=== PATIENT | female | born 1955 | race Caucasian/White ===

== ENCOUNTER 2023-10-09 15:34 | Emergency (ER) | payer MEDICARE, OTHER, SELFPAY ==
[2023-10-09 15:35] VITALS: BP 138/98
[2023-10-09 15:55] LABS: % Basophils 0.6 % (0-2); % Eosinophils 1.9 % (0-6); % Immature Granulocytes 0.2 % (0-0.5); % Lymphocytes 22.2 % (20.5-51.1); % Monocytes 8.3 % (1.7-9.3); % Neutrophils 66.8 % (42.2-75.2); Absolute Eosinophils 0.1 10^3/uL (0-0.7); Absolute Lymphocytes 1.1 10^3/uL (1.2-3.4); Absolute Monocytes 0.4 10^3/uL (0.1-0.6); Absolute Neutrophils 3.2 10^3/uL (1.4-6.5); Hematocrit 35.6 % (37.0-47.0); Hemoglobin 12.5 g/dL (12.0-16.0); Mean Corp Hgb Conc. 35.1 g/dL (33.0-37.0); Mean Corpuscular Volume 85.6 fL (81.0-99.0); Mean Platelet Volume 10.3 fL (7.4-10.4); Nucleated Red Blood Cells % 0 %; Platelet Count 242 10^3/uL (130-400); Red Blood Cell Count 4.16 10^6/uL (4.20-5.40); Red Cell Dist. Width 12.5 % (11.5-14.5); White Blood Cell Count 4.7 10^3/uL (4.8-10.8)
[2023-10-09 15:56] LABS: Urine Albumin 1+ (Neg - Trace); Urine Bilirubin 3+ (Negative); Urine Character Clear (Clear); Urine Glucose Negative (Negative); Urine Ketone Negative (Negative); Urine Leukocyte Negative (Negative); Urine Nitrite Positive (Negative); Urine Occult Blood 4+ (Negative); Urine Urobilinogen 3+ (Neg - 1+)
[2023-10-09 15:57] LABS: Urine Color Orange
[2023-10-09 16:04] LABS: Urine Squamous Cell 0-2 /LPF (Few)
[2023-10-09 16:05] LABS: Urine Red Blood Cell >100 /HPF (0-2); Urine White Cell 0-2 /HPF (0-5)
[2023-10-09 16:13] LABS: ALT (SGPT) 20 U/L (0-35); AST (SGOT) 30 U/L (14-36); Albumin 4.5 g/dl (3.5-5.0); Alkaline Phosphatase 61 U/L (38-126); Blood Urea Nitrogen 25 mg/dl (7-17); Calcium 9.9 mg/dl (8.4-10.2); Carbon Dioxide 29 mmol/L (22-30); Chloride 97 mmol/L (98-107); Glucose 117 mg/dl (70-99); Potassium 3.1 mmol/L (3.5-5.1); Sodium 138 mmol/L (135-145); Total Bilirubin 2.1 mg/dl (0.2-1.3); Total Protein 7.1 g/dl (6.3-8.2); eGFR > 60.00
--- NOTE | 2023-10-09 17:13 | ED.GENMED ---
Addendum entered and electronically signed by Antonieta Thomas PA-C 10/11/23 08:14:
Urine culture preliminarily gram-negative rods. She was given a dose of Rocephin in the hospital. I spoke with her and she is feeling better, no systemic symptoms and believes she probably passed the stone. Will send in a prescription for
cefdinir twice daily for 10 days, encouraged patient to return for any worsening symptoms. We will need to follow-up on the finalized culture to be sure that this is adequate coverage.
Original Note:
History of Present Illness
General
Chief Complaint: Urinary Symptoms
Source: patient
Exam Limitations: none
Time Seen by Provider: 10/09/23 16:36
Nursing documentation reviewed up to this point in time: agreed with
Travel History
Have you had any contact with someone who has COVID-19?: No
Do you have any symptoms of coronavirus? Fever > 100 degrees, chills, cough, shortness of breath, sore throat, loss of taste or smell, muscle aches, or headache?: No
History of Present Illness
History of Present Illness:
pt is a 67 y/o F with h/o HTN, HLD h/o kidney stones
says she has had poor appetite for af ew weeks since having her R TKR 7 weeks ago and has had diarrhea and nauesa and lack of appetite; pt says she has had a w/u for this and has been inconclusive, no causes identified
shehasn't been drinking a lot of water
says that she has had kidney stones about 10 times in the past and has been told she gets them when she is dehydrated
she started having urethral irritation which is usually the symptom she gets with stones, she never gets flank pain with her stones
she tried an OTC dose of pyridium but was still uncomfortable so she is here to see if she is passing a stone
she has not had fever, chills, vomiting, diarrhea, hematuria
Past History
Past History
ED Past Medical History: GERD, HTN and Hypercholesterolemia
ED Past Surgical History: Appendectomy and Orthopedic
Patient has exhibited threatening behavior?: No
PSI?: No
Review of Systems
Review of Systems
Allergies reviewed?: Yes
All Other Systems: Not applicable
Phy Exam
Physical Exam
Physical Exam:
GENERAL: Alert, comfortable
Neck: supple
CARDIAC: Regular rate and rhythm .
LUNGS: Clear breath sounds bilaterally, no acute respiratory distress, no wheezes/rales/rhonchi
ABDOMEN: Soft, normal bowel sounds, nondistended, mild suprapubic tenderness, no guarding, no rebound, neg gallegos's
NEUROLOGICAL: Alert and oriented, no focal neuro deficits
SKIN: Warm and dry, skin intact.
PSYCH: Normal and appropriate interaction.
Course
Orders/Labs/Results
Orders:
Orders
10/09/23 15:44
Urinalysis Reflex To Culture Urgent
Date Specimen was Collected: 10/09/23
Time Specimen was Collected: 15:40
Urine Microscopic Reflex Cult Urgent
Urine Culture Urgent
JULIAN Source: U
Specimen Description:
Date Specimen was Collected: 10/09/23
Time Specimen was Collected: 15:40
10/09/23 15:46
CMP [Comprehensive Metabolic Panel] Urgent
Complete Blood Count/With Diff Urgent
Magnesium Urgent
Comment: ADD ON
10/09/23 17:10
Add On- LAB Urgent
Tests Added?: magnesium
CT Abd/pel Without Iv Or Oral Urgent
Comment:
Reason For Exam: suprapubic pain h/o kidney stones
0.9% Sodium Chloride 1000 ml [Nss] 1,000 ml IV BOLUS
Ketorolac [Toradol] 15 mg IV NOW STA
10/09/23 18:36
Potassium Chloride [KCl] 20 meq PO NOW STA
Tamsulosin [Flomax] 0.4 mg PO NOW STA
10/09/23 18:42
CefTRIAXone [Rocephin] 1,000 mg IV NOW STA
Abnormal Lab Results
10/09/23 10/09/23
15:44 15:46
WBC 4.7 L 10^3/uL
(4.8-10.8)
RBC 4.16 L 10^6/uL
(4.20-5.40)
Hct 35.6 L %
(37.0-47.0)
Absolute Lymphs (auto) 1.1 L 10^3/uL
(1.2-3.4)
Potassium 3.1 L mmol/L
(3.5-5.1)
Chloride 97 L mmol/L
(98-107)
BUN 25 H mg/dl
(7-17)
Glucose 117 H mg/dl
(70-99)
Total Bilirubin 2.1 H mg/dl
(0.2-1.3)
Ur Occult Blood Reflex 4+ A
(Negative)
Urine Nitrite (Reflex) Positive A
(Negative)
Urine Bilirubin 3+ A
(Negative)
Urine Urobilinogen 3+ A
(Neg - 1+)
Urine RBC >100 A /HPF
(0-2)
Urine Albumin (Reflex) 1+ A
(Neg - Trace)
10/09/23 15:46
10/09/23 15:46
Vital Signs
Initial and Last Documented VS:
Initial Vital Signs
Temp Pulse Resp BP Pulse Ox
97.6 F 97 18 138/98 99
10/09/23 15:35 10/09/23 15:35 10/09/23 15:35 10/09/23 15:35 10/09/23 15:35
Last Documented Vital Signs
Temp Pulse Resp BP Pulse Ox
97.6 F 75 18 104/81 99
10/09/23 15:35 10/09/23 18:51 04/12/24 18:51 10/09/23 18:51 10/09/23 18:51
MDM/Problems Addressed
Differential Diagnosis Includes:
kidney stone, uti
MDM/Problems Addressed:
67 y/o F with h/o kidney stones, (says she never got falnk pain, always pressure in her bladder and in her urethra)
and started with pain yesterday and urge to urinate
no fever/chills
took pyridium [employer]
pt well appearing
afebrile
nontoxic
mild suprapubic tendenress
no flank tendenress
ua nitritie positive but also with bili and could be false positive due to pyridium
no LE, no wbc
>[address] shows 2 mm distal UVJ stone
flomax, pain meds
1 dose rocephin in the ER and pending culture but really do not anticipiate this will be a + urine culture
*Critical Care Note
Total Time (30-74mins, 75-104mins- exclusive of procedures): Not Applicable
ED Attending Note
-
Portions of this chart may have been created with voice recognition software.� Occasional wrong word or��sound alike� substitutions may have occurred due to the inherent limitations of voice recognition software.
Discharge Plan
Departure
Patient Disposition: Home (Routine Discharge)
Date of Disposition: 10/09/23
Time of Disposition: 18:43
Patient with high blood pressure during this ER visit?: No
Condition: Fair
Covid-19: Not Applicable
Discharge Problem:
Kidney stone
Instructions: Kidney Stones (DC)
Prescriptions:
New
tamsulosin [Flomax] 0.4 mg capsule
0.4 mg PO DAILY Qty: 14 0RF
hydrocodone-acetaminophen 5-325 mg tablet
1 tab PO BID PRN (Reason: Pain) Qty: 10 0RF
Referrals:
Shant Amaya MD [Family Provider] - Follow up in 5-7 days
Activity Restrictions/Additional Instructions:
You have a 2 mm stone in your left UVJ near your bladder and hopefully will pass it in the next day or so. Take Flomax once a day until you pass the stone. Each time you pee urinate through the strainer to be able to see when you pass it. For
pain take ibuprofen 600 mg 2 or 3 times a day with food. For additional pain if it severe you can take Vicodin 1 tablet every 6 hours, if the pain is mild you can do Tylenol instead. Vicodin has Tylenol in it so be careful. If you take the
Vicodin make sure you take a stool softener to prevent constipation.
Return to the ER for worsening pain, fever, vomiting, difficulty urinating or any concerns. Otherwise follow-up with your urologist.
I sent a culture of your urine to be sure there is no infection and we gave you 1 dose of antibiotics while you are here just in case.
Interventions
Interventions:
*Risk Screen - Suicide Last Done: 10/09/23 17:19
*General Assessment Last Done: 10/09/23 17:19
*Neglect/Abuse Screening Last Done: 10/09/23 17:19
*ED COVID-19 Vaccine History Last Done: 10/09/23 17:19
*Nursing Disposition Last Done: 10/09/23 19:01
ED-Female Genitourinary Assessment Last Done: 10/09/23 17:00
Discharge Date and Time
Discharge Date/Time: 10/09/23 19:01
Print Language: TAMAZIGHT
[2023-10-09] MEDS: TORADOL 15 MG IV (17:27)
[2023-10-09] MEDS: NSS 1000 IV (17:27)
[2023-10-09 17:55] LABS: Magnesium 2.2 mg/dl (1.6-2.3)
[2023-10-09] MEDS: ROCEPHIN 1000 MG IV (18:48)
[2023-10-09] MEDS: FLOMAX 0.400000000000000022 MG PO (18:48)
[2023-10-09] MEDS: KCL 20 MEQ PO (18:48)
[2023-10-09 18:51] VITALS: BP 104/81
== END 2023-10-09 19:01 | disposition home or self-care (01) ==
LOC: EMR 15:34
PROVIDERS: Emergency Medicine; EMERGENCY PHYSICIAN Emergency Medicine; FAMILY PHYSICIAN Family Medicine
DX: N20.2 Calculus of kidney with calculus of ureter (principal); Z87.442 Personal history of urinary calculi
CPT/HCPCS: 99284; 96374; 96375; 96361; 74176; 80053; 81003; 81015; 83735; 85025; 87077; 87086; 87186

== ENCOUNTER 2023-11-18 15:36 | Emergency (ER) | payer MEDICARE, OTHER, SELFPAY ==
[2023-11-18] VITALS (7 sets, daily range): BP systolic 89–104; BP diastolic 61–68; BMI 27.5
[2023-11-18 15:54] LABS: % Basophils 0.6 % (0-2); % Eosinophils 1.9 % (0-6); % Immature Granulocytes 0.2 % (0-0.5); % Lymphocytes 27.2 % (20.5-51.1); % Monocytes 5.6 % (1.7-9.3); % Neutrophils 64.5 % (42.2-75.2); Absolute Eosinophils 0.1 10^3/uL (0-0.7); Absolute Lymphocytes 1.3 10^3/uL (1.2-3.4); Absolute Monocytes 0.3 10^3/uL (0.1-0.6); Absolute Neutrophils 3.1 10^3/uL (1.4-6.5); Hematocrit 32.8 % (37.0-47.0); Hemoglobin 11.2 g/dL (12.0-16.0); Mean Corp Hgb Conc. 34.1 g/dL (33.0-37.0); Mean Corpuscular Hgb 29.6 pg (27.0-31.0); Mean Corpuscular Volume 86.5 fL (81.0-99.0); Mean Platelet Volume 10.3 fL (7.4-10.4); Nucleated Red Blood Cells % 0 %; Platelet Count 205 10^3/uL (130-400); Red Blood Cell Count 3.79 10^6/uL (4.20-5.40); Red Cell Dist. Width 12.8 % (11.5-14.5); White Blood Cell Count 4.8 10^3/uL (4.8-10.8)
[2023-11-18 16:12] LABS: ALT (SGPT) 22 U/L (0-35); AST (SGOT) 29 U/L (14-36); Albumin 4.2 g/dl (3.5-5.0); Alkaline Phosphatase 69 U/L (38-126); Blood Urea Nitrogen 28 mg/dl (7-17); Calcium 9.3 mg/dl (8.4-10.2); Carbon Dioxide 30 mmol/L (22-30); Chloride 100 mmol/L (98-107); Glucose 155 mg/dl (70-99); Lipase 259 U/L (23-300); Potassium 3.1 mmol/L (3.5-5.1); Sodium 137 mmol/L (135-145); Total Bilirubin 1.7 mg/dl (0.2-1.3); Total Protein 6.6 g/dl (6.3-8.2); eGFR > 60.00
[2023-11-18] MEDS: NSS 1000 IV (16:47)
--- NOTE | 2023-11-18 17:17 | ED.GENMED ---
History of Present Illness
General
Chief Complaint: Abdominal Symptoms
Time Seen by Provider: 11/18/23 16:18
Travel History
Have you had any contact with someone who has COVID-19?: No
Do you have any symptoms of coronavirus? Fever > 100 degrees, chills, cough, shortness of breath, sore throat, loss of taste or smell, muscle aches, or headache?: No
History of Present Illness
History of Present Illness:
67-year-old female with history of hypertension and hyperlipidemia presents to the emergency department for evaluation of left lower quadrant pain ongoing for the past 2 to 3 days. Pain is gradually worsening, no associated nausea, vomiting,
diarrhea, dysuria, or hematuria. Has had kidney stones in the past but does not feel similar. History of appendectomy no other abdominal surgeries
Past History
Past History
ED Past Medical History: GERD, HTN and Hypercholesterolemia
ED Past Surgical History: Appendectomy and Orthopedic
Patient has exhibited threatening behavior?: No
PSI?: No
Phy Exam
Physical Exam
Physical Exam:
GEN: Well appearing, NAD, WDWN
Eyes: PERRLA, EOMs intact, no scleral icterus
HENT: NCAT, oral mucosa moist
Lungs: CTAB, no wheezes, rales, rhonchi, normal chest wall excursion
Cardiac: RRR, no M/R/G, no peripheral edema. Radial pulses 2+ bilat
Abdomen: S, NT, ND, NABS, no masses or hepatosplenomegaly
Neuro: AO x 3
MSK: No gross deformity or ecchymosis. No edema. No digital clubbing
Skin: No rashes, petechiae. Normal color, no pallor or jaundice.
Psych: Calm, cooperative, proper hygiene
Course
Orders/Labs/Results
Orders:
Orders
11/18/23 15:47
Complete Blood Count/With Diff Urgent
Comprehensive Metabolic Panel Urgent
Lipase Urgent
11/18/23 16:24
CT Abd/Pel (IV only)-DH only Urgent
Comment:
Reason For Exam: LLQ pain
11/18/23 16:40
0.9% Sodium Chloride 1000 ml [Nss] 1,000 ml IV BOLUS
11/18/23 18:50
Urine Culture Reflexed from UA [Urinalysis Reflex To Culture] Urgent
Date Specimen was Collected: 11/18/23
Time Specimen was Collected: 15:41
Abnormal Lab Results
11/18/23
15:47
RBC 3.79 L 10^6/uL
(4.20-5.40)
Hgb 11.2 L g/dL
(12.0-16.0)
Hct 32.8 L %
(37.0-47.0)
Potassium 3.1 L mmol/L
(3.5-5.1)
BUN 28 H mg/dl
(7-17)
Glucose 155 H mg/dl
(70-99)
Total Bilirubin 1.7 H mg/dl
(0.2-1.3)
11/18/23 15:47
11/18/23 15:47
Vital Signs
Initial and Last Documented VS:
Initial Vital Signs
Temp Pulse Resp BP Pulse Ox
98.2 F 80 18 98/66 96
11/18/23 15:38 11/18/23 15:38 11/18/23 15:38 11/18/23 15:38 11/18/23 15:38
Last Documented Vital Signs
Temp Pulse Resp BP Pulse Ox
98.4 F 62 15 98/67 94
11/18/23 16:39 11/18/23 18:16 11/18/23 18:16 11/18/23 18:00 11/18/23 18:16
MDM/Problems Addressed
MDM/Problems Addressed:
Abdominal imaging reveals no acute pathology. Labs are reassuring and urinalysis is unremarkable.
*Critical Care Note
Total Time (30-74mins, 75-104mins- exclusive of procedures): Not Applicable
ED Attending Note
-
Portions of this chart may have been created with voice recognition software.� Occasional wrong word or��sound alike� substitutions may have occurred due to the inherent limitations of voice recognition software.
Discharge Plan
Departure
Patient Disposition: Home (Routine Discharge)
Date of Disposition: 11/18/23
Time of Disposition: 18:21
Patient with high blood pressure during this ER visit?: No
Discharge Problem:
Abdominal pain, acute, left lower quadrant
Instructions: Abdominal Pain
Prescriptions:
No Action
tamsulosin [Flomax] 0.4 mg capsule
0.4 mg PO DAILY Qty: 14 0RF
hydrocodone-acetaminophen 5-325 mg tablet
1 tab PO BID PRN (Reason: Pain) Qty: 10 0RF
cefdinir 300 mg capsule
300 mg PO BID Qty: 20 0RF
Referrals:
Shant Amaya MD [Family Provider] -
Interventions
Interventions:
*Risk Screen - Suicide Last Done: 11/18/23 15:38
*General Assessment Last Done: 11/18/23 15:38
*Neglect/Abuse Screening Last Done: 11/18/23 15:38
*Nursing Disposition Last Done: 11/18/23 19:00
AV-Dmieqd-Enjmizovny Assessment Last Done: 11/18/23 16:36
Discharge Date and Time
Discharge Date/Time: 11/18/23 19:00
Print Language: SERBIAN
[2023-11-18 18:58] LABS: Urine Albumin Negative (Neg - Trace); Urine Bilirubin Negative (Negative); Urine Character Clear (Clear); Urine Color Straw; Urine Glucose Negative (Negative); Urine Ketone Negative (Negative); Urine Leukocyte Negative (Negative); Urine Nitrite Negative (Negative); Urine Occult Blood Negative (Negative); Urine Specific Gravity 1.005 (<1.030); Urine Urobilinogen Negative (Neg - 1+)
== END 2023-11-18 19:00 | disposition home or self-care (01) ==
LOC: EMR 15:36
PROVIDERS: EMERGENCY PHYSICIAN Emergency Medicine; FAMILY PHYSICIAN Family Medicine
DX: R10.32 Left lower quadrant pain (principal); I10 Essential (primary) hypertension; E78.00 Pure hypercholesterolemia, unspecified; K21.9 Gastro-esophageal reflux disease without esophagitis; Z87.442 Personal history of urinary calculi; Z88.1 Allergy status to other antibiotic agents; Z88.2 Allergy status to sulfonamides
CPT/HCPCS: 99285; 96360; 74177; 80053; 81003; 83690; 85025; Q9967

== ENCOUNTER 2023-12-03 06:45 | Emergency (ER) | payer MEDICARE, OTHER, SELFPAY ==
[2023-12-03 06:54] VITALS: BP 124/85
[2023-12-03 07:54] LABS: Urine Albumin 2+ (Neg - Trace); Urine Bilirubin 1+ (Negative); Urine Character Very Cloudy (Clear); Urine Color Amber; Urine Glucose Negative (Negative); Urine Ketone 1+ (Negative); Urine Leukocyte 2+ (Negative); Urine Nitrite Positive (Negative); Urine Occult Blood 4+ (Negative); Urine Urobilinogen Negative (Neg - 1+)
[2023-12-03 08:10] LABS: Urine Red Blood Cell >100 /HPF (0-2); Urine Squamous Cell 0-2 /LPF (Few)
[2023-12-03 08:11] LABS: Urine Bacteria Many (Negative); Urine White Cell 50-60 /HPF (0-5)
--- NOTE | 2023-12-03 09:22 | ED.GENMED ---
History of Present Illness
General
Chief Complaint: Urinary Symptoms
Source: patient
Time Seen by Provider: 12/03/23 09:20
Travel History
Have you had any contact with someone who has COVID-19?: No
Do you have any symptoms of coronavirus? Fever > 100 degrees, chills, cough, shortness of breath, sore throat, loss of taste or smell, muscle aches, or headache?: No
History of Present Illness
History of Present Illness:
67-year-old female with past medical history of hypertension, hyperlipidemia, GERD presenting to the emergency department for evaluation of urinary frequency/urgency/dysuria and chills while urinating over the last 2 days. Patient states she was
recently treated at this facility for a urinary tract infection and kidney stone and reports full resolution of symptoms at that time. She is denying any fevers, rigors, nausea, vomiting, bowel changes, generalized weakness or fatigue. Patient
states she was not sure if her symptoms were related to UTI or recurring kidney stones so decided to come to the ER today.
Past History
Past History
ED Past Medical History: GERD, HTN and Hypercholesterolemia
ED Past Surgical History: Appendectomy and Orthopedic
Patient has exhibited threatening behavior?: No
PSI?: No
Social History
Tobacco: Non-smoker
Alcohol: None
Drug: None
Personal:
Living: with family
Review of Systems
Review of Systems
All Other Systems: ROS reviewed and negative except as documented in HPI and ROS
Phy Exam
Physical Exam
Physical Exam:
GENERAL: Alert , in no apparent distress, smiling and pleasant
EYE: conjunctiva clear
Head: Normocephalic atraumatic
NECK: Supple,
ENT: mmm.
Heart: Regular rate and rhythm, no murmur
LUNGS: no acute respiratory distress
Abdomen: Soft, nontender, nondistended, no CVA tenderness
NEUROLOGICAL: Alert and oriented
SKIN: Warm and dry, skin intact.
MUSCULOSKELETAL: well perfused.
PSYCH: Normal and appropriate interaction.
Scores
Heart Failure Risk
Heart Failure Risk Score: Not Applicable
Heart Score for Chest Pain Patients
STEMI patient?: Not applicable
Withdrawal Assessment of Alcohol
Withdrawal Assessment Completed?: Not applicable
Course
Orders/Labs/Results
Orders:
Orders
12/03/23 07:08
Urinalysis Reflex To Culture Urgent
Date Specimen was Collected: 12/03/23
Time Specimen was Collected: 07:00
Urine Microscopic Reflex Cult Urgent
Urine Culture Urgent
JULIAN Source: U
Specimen Description:
Date Specimen was Collected: 12/03/23
Time Specimen was Collected: 07:00
Abnormal Lab Results
12/03/23
07:08
Urine Ketones 1+ A
(Negative)
Ur Occult Blood Reflex 4+ A
(Negative)
Urine Nitrite (Reflex) Positive A
(Negative)
Urine Bilirubin 1+ A
(Negative)
Leukocyte Esterase Rfl 2+ A
(Negative)
Urine RBC >100 A /HPF
(0-2)
Urine WBC (Reflex) 50-60 A /HPF
(0-5)
Urine Bacteria (Reflex) Many A
(Negative)
Urine Albumin (Reflex) 2+ A
(Neg - Trace)
Vital Signs
Initial and Last Documented VS:
Initial Vital Signs
Temp Pulse Resp BP Pulse Ox
98.4 F 68 15 124/85 100
12/03/23 06:54 12/03/23 06:54 12/03/23 06:54 12/03/23 06:54 12/03/23 06:54
Last Documented Vital Signs
Temp Pulse Resp BP Pulse Ox
98.4 F 68 15 124/85 100
12/03/23 06:54 12/03/23 06:54 12/03/23 06:54 12/03/23 06:54 12/03/23 06:54
MDM/Problems Addressed
Differential Diagnosis Includes:
Cystitis, pyelonephritis, infected kidney stone, renal/ureteral colic
MDM/Problems Addressed:
67-year-old female presenting to the emergency department for evaluation of urinary symptoms that started over the last 24 to 36 hours. Symptoms are mainly dysuria and urinary frequency as well as chills while urinating. No signs or symptoms to
suggest bacteremia/systemic infection. Patient without CVA tenderness. Symptoms seem to be more consistent with urinary tract infection. Patient had urine culture done in September here which grew Klebsiella and was sensitive to penicillin and
cephalosporins. She was given cefdinir the last time so we will treat with Augmentin today. Pyridium sent to pharmacy. Patient aware of return precautions to the emergency department. She feels comfortable with this treatment plan.
*Pulse Oximetry
Patient hypoxic: no
*Critical Care Note
Total Time (30-74mins, 75-104mins- exclusive of procedures): Not Applicable
Data Reviewed
Review of Other/Old Records Reveals: Labs and Records
Source: patient and records
Further Testing Considered But Not Given:
Considered labs and CT given recent history of kidney stone however given patient's overall well appearance and disposition she feels comfortable foregoing this workup and trialing antibiotics and is aware of the return precautions
ED Attending Note
-
Portions of this chart may have been created with voice recognition software.� Occasional wrong word or��sound alike� substitutions may have occurred due to the inherent limitations of voice recognition software.
Discharge Plan
Departure
Patient Disposition: Home (Routine Discharge)
Date of Disposition: 12/03/23
Time of Disposition: 09:22
Patient with high blood pressure during this ER visit?: No
Discharge Problem:
Urinary tract infection
Instructions: Urinary Tract Infection, Adult (DC)
Prescriptions:
New
amoxicillin-pot clavulanate 875-125 mg tablet
1 tab PO BID 10 Days Qty: 20 0RF
phenazopyridine [Pyridium] 200 mg tablet
200 mg PO PC PRN (Reason: Pain) Qty: 6 0RF
No Action
tamsulosin [Flomax] 0.4 mg capsule
0.4 mg PO DAILY Qty: 14 0RF
hydrocodone-acetaminophen 5-325 mg tablet
1 tab PO BID PRN (Reason: Pain) Qty: 10 0RF
cefdinir 300 mg capsule
300 mg PO BID Qty: 20 0RF
Referrals:
Shant Amaya MD [Family Provider] -
Michael Lopez MD [Active] - (Urology)
Discharge Date and Time
Print Language: HUNGARIAN
[2023-12-03 10:01] VITALS: BP 123/82
== END 2023-12-03 10:05 | disposition home or self-care (01) ==
LOC: EMR 06:45
PROVIDERS: Emergency Medicine; EMERGENCY PHYSICIAN Student in an Organized Health Care Education/Training Program; FAMILY PHYSICIAN Family Medicine
DX: N39.0 Urinary tract infection, site not specified (principal); I10 Essential (primary) hypertension; E78.00 Pure hypercholesterolemia, unspecified; K21.9 Gastro-esophageal reflux disease without esophagitis; Z87.442 Personal history of urinary calculi; Z88.1 Allergy status to other antibiotic agents; Z88.2 Allergy status to sulfonamides
CPT/HCPCS: 99283; 81003; 81015; 87086; 87088; 87186